=== PATIENT | male | born 1955 | race Caucasian/White ===

== ENCOUNTER 2018-05-13 12:55 | Emergency (ER) | payer BC ==
[2018-05-13] MEDS ORDERED: Ibuprofen TAB* 600 MG PO ONE (13:49)
[2018-05-13 14:49] VITALS: BP 125/77
--- NOTE | 2018-05-13 15:07 | ED ---
Lower Extremity - HPI Summary HPI Summary: Patient is a 63-year-old male presenting to the ED with a left ankle pain and deformity after tripping this morning proximally 2 hours [employer]. He states he tripped over the ankle and to the lateral side. He endorses immediate pain, swelling without ecchymosis. He has never injured this ankle before. He denies any pain to the lower extremity otherwise. Denies any numbness or tingling. He has been unable to ambulate - History of Current Complaint Chief Complaint: EDExtremityLower Stated Complaint: LEFT ANKLE PAIN PER PT Time Seen by Provider: 05/13/18 13:10 Hx Obtained From: Patient Mechanism Of Injury: Twisted Onset of Pain: Hours Severity Initially: Moderate Severity Currently: Moderate Pain Intensity: 3 Pain Scale Used: 0-10 Numeric Timing: Constant Location: Is Discrete @ - left ankle Character Of Pain: Aching Associated Signs And Symptoms: Positive: Swelling Aggravating Factor(s): Standing, Ambulation Alleviating Factor(s): Rest Able to Bear Weight: No - Risk Factors Gout Risk Factors: Negative DVT Risk Factors: Negative Septic Arthritis Risk Factor: Negative - Allergies/Home Medications Allergies/Adverse Reactions: Allergies Allergy/AdvReac Type Severity Reaction Status Date / Time naproxen [From Aleve] Allergy Hives Verified 05/13/18 13:01 PMH/Surg Hx/FS Hx/Imm Hx Previously Healthy: Yes - Immunization History Hx Pertussis Vaccination: No Immunizations Up to Date: Yes Infectious Disease History: No Infectious Disease History: Denies: Traveled Outside the [place] in Last 30 Days - Social History Occupation: Unemployed Lives: With Family Alcohol Use: None Hx Substance Use: No Substance Use Type: Reports: None Smoking Status (MU): Never Smoked Tobacco Review of Systems Constitutional: Negative Negative: Fever, Chills, Fatigue, Skin Diaphoresis Negative: Palpitations, Chest Pain Negative: Shortness Of Breath, Cough Genitourinary: Negative Positive: no symptoms reported, see HPI Positive: Arthralgia - left lateral ankle pain and swelling Skin: Negative All Other Systems Reviewed And Are Negative: Yes Physical Exam Triage Information Reviewed: Yes Vital Signs On Initial Exam: Initial Vitals Temp Pulse Resp BP Pulse Ox 97.4 F 69 16 112/58 94 05/13/18 12:59 05/13/18 12:59 05/13/18 12:59 05/13/18 12:59 05/13/18 12:59 Vital Signs Reviewed: Yes Appearance: Positive: Well-Appearing, Well-Nourished Skin: Positive: Warm, Skin Color Reflects Adequate Perfusion Head/Face: Positive: Normal Head/Face Inspection Eyes: Positive: EOMI, HA, Conjunctiva Clear Respiratory/Lung Sounds: Positive: Clear to Auscultation, Breath Sounds Present Cardiovascular: Positive: Normal, Pulses are Symmetrical in both Upper and Lower Extremities Musculoskeletal: Positive: Pain @ - left lateral ankle pain and swelling Neurological: Positive: Sensory/Motor Intact, Alert, Oriented to Person Place, Time, Speech Normal Psychiatric: Positive: Affect/Mood Appropriate AVPU Assessment: Alert Procedures - Splinting Left Lower Extremity Hand-Made Type: plaster Splint: posterior walking Pre-Proc Neuro Vasc Exam: normal Post-Proc Neuro Vasc Exam: normal Diagnostics - Vital Signs Vital Signs Temp Pulse Resp BP Pulse Ox 05/13/18 14:48 98.6 F 88 16 125/77 95 05/13/18 12:59 97.4 F 69 16 112/58 94 - Laboratory Lab Statement: Any lab studies that have been ordered have been reviewed, and results considered in the medical decision making process. Lower Extremity Course/Dx - Course Course Of Treatment: During the course treatment, the patient is evaluated for left ankle pain and swelling without ecchymosis. On physical examination, patient has difficulty with plantar flexion and dorsiflexion. He endorses 2/10 pain only with movement. Better with rest. Patient is unable to ambulate. Ankle x-ray shows: Keller type B fracture pattern lateral malleolus with associated small avulsion fracture at the medial malleolus. No pain to the lower extremity. Ipsilateral leg. No pain just below the knee or at the knee joint. No pain to the toes. There is no color temperature changes. Posterior tibial and pedal pulses intact. The ankle appears stable. This is a closed fracture. Plaster posterior walking U slab splint placed with good effect. NV intact. Crutches given. He will follow-up with orthopedics this week or next. - Diagnoses Provider Diagnoses: Lateral malleolar fracture Discharge - Sign-Out/Discharge Documenting (check all that apply): Patient Departure Patient Received Moderate/Deep Sedation with Procedure: No - Discharge Plan Condition: Stable Disposition: HOME Patient Education Materials: Ankle Fracture (ED) Referrals: No Primary Care Phys,NOPCP [Primary Care Provider] - Sophia Ortega MD [Medical Doctor] - Additional Instructions: Keep the area elevated as much as possible Do not bear weight Use crutches Follow-up with her orthopedic physician Ibuprofen 600 mg 3 times daily 4-5 days - Billing Disposition and Condition Condition: STABLE Disposition: Home
== END 2018-05-13 14:48 | disposition home or self-care (01) ==
LOC: ED 12:55
DX: S82.845A Nondisplaced bimalleolar fracture of left lower leg, initial encounter for closed fracture (principal); W01.0XXA Fall on same level from slipping, tripping and stumbling without subsequent striking against object, initial encounter; Y93.9 Activity, unspecified; Y92.9 Unspecified place or not applicable; Z88.6 Allergy status to analgesic agent
CPT/HCPCS: 99282; A9270-GY

== ENCOUNTER 2019-04-28 15:29 | Emergency (ER) | payer BC ==
--- OUTSIDE RECORDS SUMMARY | 2019-04-28 15:43 | XMS REPORT | Summary of Care ---
:1955 Author Organization [facility] Address [address] [place] [address] Care Team Providers Name Role Phone Matty León Primary Care Provider Reason for Referral Diagnostic Testing (Routine) Status Reason Specialty Diagnoses / Referred By Referred To Procedures Contact Contact Pending Review Diagnoses Dyspnea on exertion Matty León PA Procedures EXERCISE STRESS ECHO W/TREADMILL [address] [place] [address] Reason for Visit Reason Comments Establish Care Did see Dr. Ott. Hypertension Follow up. Encounter Details Date Type Department Care Team Description 03/12/2019 Office Visit [facility] Matty León PA Encounter to establish care (Primary Dx); [address] [facility] Essential hypertension; [place] [address] 38 Prediabetes; [phone] [place] [address] Dyspnea on exertion; [phone] Chronic obstructive pulmonary disease, unspecified COPD type (HCC); [phone] Flu vaccine need; (Fax) Dyslipidemia; Depression with anxiety; REAL (obstructive sleep apnea) Allergies Active Allergy Reactions Severity Noted Date Comments Advair Diskus Rash 03/15/2015 Naproxen Sodium Other, Hives 07/06/2007 palpitations documented as of this encounter (statuses as of 03/12/2019) Medications Medication Sig Dispensed Refills Start Date End Date Status tiotropium (SPIRIVA) 18 Take 1 INHL by 30 Cap 3 11/07/2016 Active MCG Inhalation inhalation CapIndications: Chronic DAILY. obstructive pulmonary disease with acute exacerbation (HCC) albuterol HFA (PROVENTIL Take 2 Puffs by 3 Each 1 09/09/2017 Active HFA) 108 (90 Base) inhalation EVERY MCG/ACT Inhalation Aero FOUR HOURS Soln NEEDED (wheezing). loratadine Take 1 Tab by 90 Tab 0 12/08/2017 Active (CLARITIN,ALAVERT) 10 MG mouth DAILY. Oral TabIndications: Nasal congestion venlafaxine (EFFEXOR XR) Take 1 Cap by 90 Cap 0 03/08/2019 Active 150 MG Oral CAPSULE SR 24 mouth EVERY HRIndications: Depression TWENTY-FOUR with anxiety HOURS. montelukast (SINGULAIR) Take 1 Tab by 90 Tab 0 03/08/2019 Active 10 MG Oral Tab mouth DAILY. atorvastatin (LIPITOR) 20 Take 1 Tab by 90 Tab 0 03/08/2019 Active MG Oral TabIndications: mouth DAILY. Dyslipidemia hydrochlorothiazide Take 1 Tab by 90 Tab 0 03/08/2019 Active (HCTZ, ORETIC) 12.5 MG mouth DAILY. Oral TabIndications: Essential hypertension ramipril (ALTACE) 2.5 MG Take 1 Cap by 90 Cap 1 03/12/2019 Active Oral CapIndications: mouth DAILY. Essential hypertension documented as of this encounter (statuses as of 03/12/2019) Active Problems Problem Noted Date REAL (obstructive sleep apnea) 09/18/2018 BMI 40.0-44.9, adult 04/09/2017 Sessile colonic polyp 08/16/2015 Essential hypertension 08/16/2015 Prediabetes 12/13/2014 Elevated LFTs 08/10/2014 BMI 36.0-36.9,adult 05/24/2011 Depression with anxiety 12/12/2010 COPD (chronic obstructive pulmonary disease) Dyslipidemia Lumbar disc disease Cervical spine disease Erectile dysfunction documented as of this encounter (statuses as of 03/12/2019) Resolved Problems Problem Noted Date Resolved Date HTN (hypertension) 07/08/2011 08/16/2015 Nicotine dependence 12/12/2010 07/12/2011 Cough 11/27/2003 03/12/2019 documented as of this encounter (statuses as of 03/12/2019) Immunizations Name Administration Dates Next Due Influenza (IM) Preservative Free 03/12/2019, 03/13/2018, 04/09/2017, 05/07/2016, 12/16/2012, 12/21/2007 Influenza (IM) W/Pres 03/15/2015 PNEUMOCOCCAL POLYSACCHARIDE VACCINE 12/21/2007, 02/25/2006 Pneumococcal Conjugate(13 Valent) 04/19/2015 TDAP Vaccine 10/15/2012 documented as of this encounter Social History Tobacco Use Types Packs/Day Years Used Date Former Smoker Cigarettes 2 30 Quit: 11/24/2010 Smokeless Tobacco: Never Used Comments: 2009 Alcohol Use Drinks/Week oz/Week Comments Yes occasionally Alcohol Habits Answer Date Recorded How often do you have a drink containing alcohol? Monthly or less 03/13/2018 How many drinks containing alcohol do you have on a Not asked typical day when you are drinking? How often do you have six or more drinks on one Not asked occasion? Sex Assigned at Date Recorded Not on file Job Start Date Occupation Industry Not on file Not on file Not on file Travel History Travel Start Travel End No recent travel history available. documented as of this encounter Last Filed Vital Signs Vital Sign Reading Time Taken Comments Blood Pressure 142/84 03/12/2019 9:00 AM EST Pulse 88 03/12/2019 8:52 AM EST Temperature 36.4 03/12/2019 8:52 AM EST C (97.6 F) Respiratory Rate - - Oxygen Saturation 96% 03/12/2019 8:52 AM EST Inhaled Oxygen Concentration - - Weight 116.6 kg (257 lb) 03/12/2019 8:52 AM EST Height 167.6 cm (5' 6") 03/12/2019 8:52 AM EST Body Mass Index 41.48 03/12/2019 8:52 AM EST documented in this encounter Patient Instructions Patient InstructionsYoMatty covington PA - 03/12/2019 8:40 AM ESTEncounter to establish. BP. Borderline control. Start ramipril 2.5mg daily. Continue HCTZ> Discussed medication and side effects. Check fasting lab. Continue lipitor. Stress echo due to worsening dyspnea on exertion last 1 year. Flu shot today. Follow-up 1 month. documented in this encounter Progress Notes Matty León PA - 03/12/2019 8:40 AM EST PATIENT: Bao Lamb : 1955 DATE OF SERVICE: 03/12/2019 CHIEF COMPLAINT: Chief Complaint Patient presents with [facility] Care Did see Dr. Ott. Hypertension Follow up. Subjective HISTORY OF PRESENT ILLNESS: Bao Lamb is a 64-y.o. male who presents the clinic to establish care. Former PCP Dr. Ezequiel Bailon. States history of hypertension. On HCTZ 12.5 mg daily. Denies lower extremity edema. Denies headache, chest pain, dizziness, vision changes, or epistaxis. Retired 1 year ago. Has noticed since retiring that he gets more short of breath with normal activities around the home. States he cannot climb 1 flight of stairs without feeling very winded. He does not experience chest pain with any of these activities. History of REAL. Compliant with CPAP. History of COPD. Managed with Spiriva. Only needs albuterol inhaler 2-3 times per week. Also takes Singulair with good benefit. Quit smoking 8 years ago. Depression. Reports good response to venlafaxine. Denies side effects. Denies SI/HI. Dyslipidemia. On Lipitor 20 mg daily. Denies muscle aches. Last LDL 73. Prediabetes. Last A1c 6.1. HPI Past Medical History: Diagnosis Date Anxiety and depression BMI 40.0-44.9, adult ([facility]) 04/09/2017 Cervical spine disease Colon polyps COPD (chronic obstructive pulmonary disease) ([facility]) Diverticulosis of intestine Dyslipidemia Erectile dysfunction HTN (hypertension) stopped taking meds over a year ago Lumbar disc disease Pulmonary disease COPD Severe obstructive sleep apnea Tobacco abuse No family history on file. Current Outpatient Medications Medication Sig albuterol HFA (PROVENTIL HFA) 108 (90 Base) MCG/ACT Inhalation Aero Soln Take 2 Puffs by inhalation EVERY FOUR HOURS NEEDED (wheezing). atorvastatin (LIPITOR) 20 MG Oral Tab Take 1 Tab by mouth DAILY. hydrochlorothiazide (HCTZ, ORETIC) 12.5 MG Oral Tab Take 1 Tab by mouth DAILY. loratadine (CLARITIN,ALAVERT) 10 MG Oral Tab Take 1 Tab by mouth DAILY. montelukast (SINGULAIR) 10 MG Oral Tab Take 1 Tab by mouth DAILY. ramipril (ALTACE) 2.5 MG Oral Cap Take 1 Cap by mouth DAILY. tiotropium (SPIRIVA) 18 MCG Inhalation Cap Take 1 INHL by inhalation DAILY. venlafaxine (EFFEXOR XR) 150 MG Oral CAPSULE SR 24 HR Take 1 Cap by mouth EVERY TWENTY-FOUR HOURS. No current facility-administered medications for this visit. Allergies Allergen Reactions Advair Diskus Rash Aleve [Naproxen Sodium] Other and Hives palpitations Social History Socioeconomic History Marital status: Spouse name: Not on file Number of children: Not on file Years of education: Not on file Highest education level: Not on file Occupational History Not on file Social Needs Financial resource strain: Not on file Food insecurity Worry: Not on file Inability: Not on file Transportation needs Medical: Not on file Non-medical: Not on file Tobacco Use Smoking status: Former Smoker Packs/day: 2.00 Years: 30.00 Pack years: 60.00 Types: Cigarettes Last attempt to quit: 11/24/2010 Years since quittin.3 Smokeless tobacco: Never Used Tobacco comment: 2009 Substance and Sexual Activity Alcohol use: Yes Frequency: Monthly or less Comment: occasionally Drug use: No Sexual activity: Yes Partners: Female Lifestyle Physical activity Days per week: Not on file Minutes per session: Not on file Stress: Not on file Relationships Social connections Talks on phone: Not on file Gets together: Not on file Attends islam service: Not on file Active member of club or organization: Not on file Attends meetings of clubs or organizations: Not on file Relationship status: Not on file Intimate partner violence Fear of current or ex partner: Not on file Emotionally abused: Not on file Physically abused: Not on file Forced sexual activity: Not on file Other Topics Concern Back Care Not Asked Bike Helmet Not Asked Blood Transfusions Not Asked Caffeine Concern Not Asked Exercise Not Asked Hobby Hazards Not Asked International Travel Not Asked Service Not Asked Occupational Exposure Not Asked Seat Belt Not Asked Self-Exams Not Asked Sleep Concern Not Asked Special Diet Not Asked Stress Concern Not Asked Weight Concern Not Asked Social History Narrative - 2 children Works at [employer]. REVIEW OF SYSTEMS: Review of Systems Constitutional: Negative. Respiratory: Positive for shortness of breath. Negative for cough and wheezing. Cardiovascular: Negative. Gastrointestinal: Negative. Genitourinary: Negative. Musculoskeletal: Negative. Skin: Negative. Neurological: Negative. Psychiatric/Behavioral: Negative. Objective PHYSICAL EXAM: VITALS: BP (!) 142/84 | Pulse 88 | Temp 97.6 F (36.4 C) | Ht 5' 6" ( 1.676 m) | Wt 257 lb (116.6 kg) | SpO2 96% | BMI 41.48 kg/m Body mass index is 41.48 kg/m. Physical Exam Vitals signs reviewed. Constitutional: Comments: Morbidly obese, no acute distress, pleasant HENT: Head: Normocephalic and atraumatic. Right Ear: Tympanic membrane normal. Left Ear: Tympanic membrane normal. Mouth/Throat: Mouth: Mucous membranes are moist. Pharynx: Oropharynx is clear. Comments: Mallampati 3 Neck: Musculoskeletal: Normal range of motion and neck supple. Vascular: No carotid bruit. Cardiovascular: Rate and Rhythm: Normal rate and regular rhythm. Comments: Occasional ectopy Pulmonary: Effort: Pulmonary effort is normal. Breath sounds: Normal breath sounds. No wheezing. Abdominal: General: Bowel sounds are normal. Palpations: Abdomen is soft. Comments: protuberant Musculoskeletal: Right lower leg: No edema. Left lower leg: No edema. Skin: General: Skin is warm and dry. Neurological: Deep Tendon Reflexes: Reflexes normal. Psychiatric: Mood and Affect: Mood normal. Behavior: Behavior normal. ASSESSMENT / IMPRESSION: ICD-9-CM ICD-10-CM 1. Encounter to establish care V65.8 Z76.89 2. Essential hypertension 401.9 I10 COMPREHENSIVE METABOLIC PANEL CBC WITH DIFFERENTIAL THYROID STIMULATING HORMONE ramipril (ALTACE) 2.5 MG Oral Cap THYROID STIMULATING HORMONE CBC WITH DIFFERENTIAL COMPREHENSIVE METABOLIC PANEL 3. Prediabetes 790.29 R73.03 GLYCOHEMOGLOBIN A1C GLYCOHEMOGLOBIN A1C 4. Dyspnea on exertion 786.09 R06.09 EXERCISE STRESS ECHO W/TREADMILL 5. Chronic obstructive pulmonary disease, unspecified COPD type ([facility]) 496 J44.9 6. Flu vaccine need V04.81 Z23 [place] FLU VACCINE PRES FREE 6MOS+ 7. Dyslipidemia 272.4 E78.5 LIPID PROFILE LIPID PROFILE 8. Depression with anxiety 300.4 F41.8 9. REAL (obstructive sleep apnea) 327.23 G47.33 More than 50% of the physician/patient and or family encounter was spent with counseling and coordination of care. Total visit time involved was 40 minutes. Plan Encounter to establish. BP. Borderline control. Start ramipril 2.5mg daily. Continue HCTZ 12.5mg. Discussed medication and side effects. Check fasting lab. Continue lipitor. Stress echo ordered due to worsening dyspnea on exertion last 1 year. Flu shot today. Follow-up 1 month. Author: ANITA Phillips 03/12/2019 13:39 documented in this encounter Plan of Treatment Date Type Specialty Care Team Description 04/12/2019 Office Visit Family Practice Matty León PA [address] [place] [address] [phone] Name Type Priority Associated Diagnoses Date/Time GLYCOHEMOGLOBIN A1C Lab Routine Prediabetes 03/12/2019 10:08 AM EST LIPID PROFILE Lab Routine Dyslipidemia 03/12/2019 10:08 AM EST COMPREHENSIVE METABOLIC Lab Routine Essential hypertension 03/12/2019 10: 08 AM PANEL EST CBC WITH DIFFERENTIAL Lab Routine Essential hypertension 03/12/2019 10:08 AM EST THYROID STIMULATING HORMONE Lab Routine Essential hypertension 03/12/2019 10:08 AM EST Name Type Priority Associated Diagnoses Order Schedule GLYCOHEMOGLOBIN A1C Lab Routine Prediabetes Expected: 03/12/2019 (Approximate), Expires: 03/12/2020 LIPID PROFILE Lab Routine Dyslipidemia Expected: 03/12/2019 (Approximate), Expires: 03/12/2020 COMPREHENSIVE METABOLIC Lab Routine Essential hypertension Expected: PANEL 03/12/2019 (Approximate), Expires: 03/11/2020 CBC WITH DIFFERENTIAL Lab Routine Essential hypertension Expected: 03/12/2019 (Approximate), Expires: 03/12/2020 THYROID STIMULATING HORMONE Lab Routine Essential hypertension Expected: 03/12/2019 (Approximate), Expires: 03/12/2020 EXERCISE STRESS ECHO CV Lab Routine Dyspnea on exertion Expected: W/TREADMILL 03/12/2019, Expires: 04/15/2020 Health Maintenance Due Date Last Done Comments INFLUENZA VACCINE (#1) 2018 03/13/2018, 04/09/2017, 05/07/2016, Additional history exists DIABETES SCREENING 03/13/2019 03/13/2018, 03/13/2018, 04/17/2017, Additional history exists LUNG CANCER SCREENING 04/03/2019 04/03/2018, 04/17/2017 DEPRESSION SCREENING 09/16/2019 09/15/2018, 09/15/2018 LIPID DISORDER SCREENING 03/08/2020 03/08/2019, 04/17/2017, 07/10/2015, Additional history exists ZOSTER IMMUNIZATION SERIES 03/12/2020 Postponed from (1 of 2) 2007 (Patient refused) DTaP/Tdap/Td Vaccines (2 - 10/15/2022 10/15/2012 Tdap) Colonoscopy 10/27/2022 10/27/2017, 10/07/2012, 10/07/2012, Additional history exists PNEUMOCOCCAL 0-64 YRS Completed 04/19/2015, 12/21/2007, 02/25/2006 HEPATITIS A IMMUNIZATION Aged Out No longer eligible SERIES based on patient's age to complete this topic HPV IMMUNIZATION SERIES Aged Out No longer eligible based on patient's age to complete this topic MENINGOCOCCAL VACCINE IMM Aged Out No longer eligible based on patient's age to complete this topic documented as of this encounter Goals Goal Patient Goal Associated Recent Patient-Stated? Author Type Problems Progress Blood Pressure Blood Pressure Essential 142/84 No Keenan, < 140/90 hypertension (03/12/2019 Karen, 9:00 AM EST) WILLIAN Note: Hypertension Care Plan Based on the patient's clinical history and according to JNC 8 guidelines target blood pressure goal is less than 140/90. Based on the patient's last blood pressure of BP: 126/78 the patient is at at go al and discussed blood pressure goal with patient. As your provider, it is important that I advise you regarding: your current medications and help you with any challenges you may face taking your medications as directed (ex. instructions, cost, side effects, and interactions). Important lifestyle changes: exercise, weight reduction, diet, dietary sodium reduction, medication compliance and moderation of alcohol consumption your clinical goals and how you can achieve success: weight reduction, exercise plan and diet improvements medication management: no change. patient education/self-management tools provided: Yes To successfully manage my Hypertension I will: monitor my blood pressure daily, understanding that my goal is less than 140/ 90 per my healthcare provider's recommendation. I will schedule an appointment with my provider if consistent abnormal readings greater than 160/100. take medications every day as prescribed by my healthcare provider and if unable to take them I will discuss with my provider. monitor for symptoms of chest pain, chest tightness/pressure, irregular heartbeat, persistent dizziness, radiating arm pain, and neck or jaw pain. If any of these symptoms are noticed I will seek medical attention immediately by calling 911 exercise/walk 30 minutes 7 day(s) per week. If I experience chest pain, chest tightness, or shortness of breath, I will seek medical attention immediately. follow a diet rich in fruits, vegetables, and low-fat dairy products with reduced content of saturated & total fat. I will reduce my sodium intake daily. An example is the DASH diet. To obtain more information please refer to the DASH Eating Plan listed in Educational Resources. record my blood pressure results. Manfred is safe and secure way for you to do this in your medical record online. try to obtain an ideal body weight. My recent weight was Weight: 255 lb 6.4 oz (115.8 kg). My weight loss goal for my next office visit is 5lbs . limit alcohol consumption. For men two drinks per day and women one drink per day. if currently smoking, will discuss how to quit smoking with my healthcare provider and work towards quitting. Educational Resources: National Heart, Lung, & Blood [place] http://nhlbi.nih.gov/hbp/index.html The DASH Diet Eating Plan http://www.nhlbi.nih.gov/health/health-topics/ topics/dash/ Academy of Nutrition & DIetetics http://eatright.org National Smoking Cessation Site http://smokefree.gov Blood Pressure < Blood Pressure 142/84 (03/12/2019 9:00 Karen Gutierrez CRNP 140/90 AM EST) Note: This is an individualized treatment (blood pressure) goal for Bao Lamb : Displayed above (on the left) is your goal for blood pressure control. Your most recent blood pressure is also shown above, on the right. You should try to achieve blood pressures that are lower than your goal listed above (on the left). Depression screen (PHQ-9) Depression 0 (09/15/2018 2:14 PM EDT) Fredo Benz MD total score < 5 Note: This is an individualized treatment (depression) goal for Bao Lamb: Displayed above is your goal for a depression screening (PHQ-9) score that would indicate good control of your depression. Hyperlipidemia Lifestyle Dyslipidemia Karen Gutierrez CRNP Note: 1. LDL<100 2. Triglycerides (Trig) <150 3. Weight Reduction-BMI <25 4. Heart Health Diet -Eat 5 servings of fruits and vegetables every day. -Dietary fiber is important. 25 grams a day for a woman and 38 grams of fiber a day for men -Trans fats and saturated fats chould be avoided in favor of monounsaturated and polyunsaturated fats. -Do not replace fat with refined carbohydrate. This would decrease HDL -Eat vegetables as snacks. -Put fruit on your cereal -Replace refined grains ( like white bread, white rice) with whole grains ( like whole wheat bread and brown rice) -Cook with oils that contain polyunsaturated and monounsaturated fats, like olive, canola, and peanut oil -Choose margarine that do not have partially hydrogenated oils -Soft margarines ( especially squeeze margarines) have less trans fatty acids. -Eat fewer baked goods that are store made and contain partially hydrogenated fats (many types of crackers, cookies, and cupcakes) -Choose non sweetened and non alcoholic beverages, like water, at meals and parties. Weight loss vs. 18 mo Lifestyle 0.7 (03/12/2019 8:52 AM No Karen Hussein CRNP max (lbs) >= 10 EST) Note: This is an individualized lifestyle goal for Bao Lamb: Your body mass index (BMI) is more than 30. You should lose weight. A reasonable starting goal is to lose 10 pounds. Displayed above is how many pounds you have lost thus far towards your 10 pound weight loss goal. Keep immunizations current Lifestyle No Karen Hussein CRNP Note: This is an individualized lifestyle goal for Bao Lamb: Please be sure to keep up-to-date on recommended immunizations. For example, this would include a yearly influenza vaccine. Immunization status can be seen by looking at the Health Maintenance sections of your [facility], Plan of Care, and any After Visit Summaries. Keep a regular sleep schedule Lifestyle No Fredo Estrada MD Note: This is an individualized lifestyle goal for Bao Lamb: Please maintain a regular sleep schedule. This may help with some symptoms of depression. Take all prescribed medications as Self-management No Karen Hussein CRNP directed Note: This is an individualized self-management goal for Bao Lamb: Please take all prescribed medications as directed. 1. Do not skip doses. If you cannot afford your medications, talk with your doctor. 2. Use a pill reminder system such as a pill box if needed. Your pharmacist can help you with this. 3. Contact your Pharmacy 5 days before your medication runs out. If you cannot take your medications for any reasons, talk with your doctor. 4. Please bring all of your medication bottles and inhalers (or a list of all your medications/inhalers) with you to every visit. Potential barriers to meeting all of your care plan goals will continue to be addressed on an ongoing basis. documented as of this encounter Results Not on filedocumented in this encounter Visit Diagnoses Diagnosis Encounter to establish care Other reasons for seeking consultation Essential hypertension Unspecified essential hypertension Prediabetes Other abnormal glucose Dyspnea on exertion Other dyspnea and respiratory abnormality Chronic obstructive pulmonary disease, unspecified COPD type (HCC) Flu vaccine need Need for prophylactic vaccination and inoculation against influenza Dyslipidemia Other and unspecified hyperlipidemia Depression with anxiety Dysthymic disorder REAL (obstructive sleep apnea) Obstructive sleep apnea (adult) (pediatric) documented in this encounter Insurance Payer Benefit Plan / Subscriber ID Effective Dates Phone Address Type Group ARJUN OVALLES xxxxxxxxxxxx 2014-Present [employer] Name Account Type Relation to Date of Phone Billing Patient Address Bao Lamb Personal/Family 1955 [address] (Home) [facility] [phone] [place], [place] (Work) [id number] documented as of this encounter
--- OUTSIDE RECORDS SUMMARY | 2019-04-28 15:43 | XMS REPORT | Summary of Care ---
:1955 Author Organization [facility] Address [address] [address] Care Team Providers Name Role Phone Matty León Primary Care Provider Reason for Referral MRI/CAT/PET Scan (Routine) Status Reason Specialty Diagnoses / Referred By Referred To Procedures Contact Contact Pending Review Diagnoses Encounter for screening for malignant neoplasm of lung in current smoker with 30 pack year history or greater Matty León PA Procedures CT CHEST LUNG SCREENING [address] [place] [address] Reason for Visit Reason Comments Follow Up Hypertnesion Encounter Details Date Type Department Care Team Description 04/13/2019 Office Visit [facility] Matty León PA Essential hypertension (Primary Dx); [address] [facility] Dyslipidemia; [place] [address] 38 Chronic obstructive pulmonary disease, unspecified COPD type (HCC); [phone] [place] [address] Encounter for screening for malignant neoplasm of lung in current smoker with 30 pack year history or greater [phone] Allergies Active Allergy Reactions Severity Noted Date Comments Advair Diskus Rash 03/15/2015 Naproxen Sodium Other, Hives 07/06/2007 palpitations documented as of this encounter (statuses as of 04/13/2019) Medications Medication Sig Dispensed Refills Start End Status Date Date tiotropium (SPIRIVA) 18 Take 1 INHL by 30 Cap 3 11/08/19 Active MCG Inhalation inhalation 17 CapIndications: Chronic DAILY. obstructive pulmonary disease with acute exacerbation (HCC) loratadine Take 1 Tab by 90 Tab 0 12/09/19 Active (CLARITIN,ALAVERT) 10 mouth DAILY. 18 MG Oral TabIndications: Nasal congestion venlafaxine (EFFEXOR Take 1 Cap by 90 Cap 0 03/08/20 Active XR) 150 MG Oral CAPSULE mouth EVERY 19 SR 24 HRIndications: TWENTY-FOUR Depression with anxiety HOURS. montelukast (SINGULAIR) Take 1 Tab by 90 Tab 0 03/08/20 Active 10 MG Oral Tab mouth DAILY. 19 atorvastatin (LIPITOR) Take 1 Tab by 90 Tab 0 03/08/20 Active 20 MG Oral mouth DAILY. 19 TabIndications: Dyslipidemia hydrochlorothiazide Take 1 Tab by 90 Tab 0 03/08/20 Active (HCTZ, ORETIC) 12.5 MG mouth DAILY. 19 Oral TabIndications: Essential hypertension ramipril (ALTACE) 5 MG Take 1 Cap by 90 Cap 1 04/13/19 Active Oral CapIndications: mouth DAILY. 20 Essential hypertension albuterol HFA Take 2 Puffs 3 Each 1 04/13/19 Active (PROVENTIL HFA) 108 (90 by inhalation 20 Base) MCG/ACT EVERY FOUR Inhalation Aero Soln HOURS NEEDED (wheezing). albuterol HFA Take 2 Puffs 3 Each 1 09/10/19 Discontinued (PROVENTIL HFA) 108 (90 by inhalation 18 020 (Reorder) Base) MCG/ACT EVERY FOUR Inhalation Aero Soln HOURS NEEDED (wheezing). ramipril (ALTACE) 2.5 Take 1 Cap by 90 Cap 1 03/12/19 Discontinued MG Oral CapIndications: mouth DAILY. 20 020 (Reorder) Essential hypertension documented as of this encounter (statuses as of 04/13/2019) Active Problems Problem Noted Date REAL (obstructive sleep apnea) 09/18/2018 BMI 40.0-44.9, adult 04/09/2017 Sessile colonic polyp 08/16/2015 Essential hypertension 08/16/2015 Prediabetes 12/13/2014 Elevated LFTs 08/10/2014 BMI 36.0-36.9,adult 05/24/2011 Depression with anxiety 12/12/2010 COPD (chronic obstructive pulmonary disease) Dyslipidemia Lumbar disc disease Cervical spine disease Erectile dysfunction documented as of this encounter (statuses as of 04/13/2019) Resolved Problems Problem Noted Date Resolved Date HTN (hypertension) 07/08/2011 08/16/2015 Nicotine dependence 12/12/2010 07/12/2011 Cough 11/27/2003 03/12/2019 documented as of this encounter (statuses as of 04/13/2019) Immunizations Name Administration Dates Next Due Influenza (IM) Preservative Free 03/12/2019, 03/13/2018, 04/09/2017, 05/07/2016, 12/16/2012, 12/21/2007 Influenza (IM) W/Pres 03/15/2015 PNEUMOCOCCAL POLYSACCHARIDE VACCINE 12/21/2007, 02/25/2006 Pneumococcal Conjugate(13 Valent) 04/19/2015 TDAP Vaccine 10/15/2012 documented as of this encounter Social History Tobacco Use Types Packs/Day Years Used Date Former Smoker Cigarettes 2 30 Quit: 11/24/2010 Smokeless Tobacco: Never Used Tobacco Cessation: Counseling Given: No Comments: 2009 Alcohol Use Drinks/Week oz/Week Comments [...] Sign Reading Time Taken Comments Blood Pressure 132/84 04/13/2019 8:07 AM EST Pulse 86 04/13/2019 8:07 AM EST Temperature 36.8 04/13/2019 8:07 AM C (98.3 EST F) Respiratory Rate 18 04/13/2019 8:07 AM EST Oxygen Saturation 94% 04/13/2019 8:07 AM EST Inhaled Oxygen Concentration - - Weight 116.4 kg (256 lb 11.2 oz) 04/13/2019 8:07 AM EST Height 167.6 cm (5' 6") 04/13/2019 8:07 AM EST Body Mass Index 41.43 04/13/2019 8:07 AM EST documented in this encounter Patient Instructions Patient InstructionsMatty León PA - 04/13/2019 8:00 AM ESTGood response to ramipril. Goal < 130/80. Increase to ramipril 5mg daily. Encouraged regular aerobic exercise 30 minutes daily. May increase to 60 minutes daily. Encouraged weight loss. Echo reviewed. Consider alternative testing with chest pain or worsening dyspnea on exertion. Dyslipidemia. At goal. Triglycerides elevated. Will address with diet for now. COPD. Stable with spiriva and albuterol. Albuterol HFA refilled. Schedule CT lung cancer screening. Follow-up 6 months HTN. documented in this encounter Progress Notes Matty León PA - 04/13/2019 8:00 AM EST PATIENT: Bao Lamb : 1955 DATE OF SERVICE: 04/13/2019 CHIEF COMPLAINT: Chief Complaint Patient presents with Follow Up Hypertnesion Subjective HISTORY OF PRESENT ILLNESS: Bao Lamb is a 64-y.o. male who presents for follow-up HTN and review stress echo. Started on ramipril 2.5 mg daily. Tolerating without side effects. Denies cough. Denies chest pain or shortness of breath. This test is negative for ischemia by symptoms, negative for ischemia by EKG, negative for ischemia by echocardiographic imaging. Resting hypertension with hypertensive response to exercise. Recommendation Blood pressure control. If continues to have symptoms or concerns for coronary etiology, consider alternative testing/evaluation. 7 METS achieved. HPI Past Medical History: Diagnosis Date Anxiety and depression BMI 40.0-44.9, adult (HCC) 04/09/2017 Cervical spine disease Colon polyps COPD (chronic obstructive pulmonary disease) (HCC) Diverticulosis of intestine Dyslipidemia Erectile dysfunction HTN [...] 1 Tab by mouth DAILY. ramipril (ALTACE) 5 MG Oral Cap Take 1 Cap by [...] file Gets together: Not on file Attends spiritism service: Not on file Active member of [...] History Narrative - 2 children Works at [employer] REVIEW OF SYSTEMS: Review of Systems Constitutional: Negative. Respiratory: Negative. Cardiovascular: Negative. Skin: Negative. Neurological: Negative. Objective PHYSICAL EXAM: VITALS: BP 132/84 | Pulse 86 | Temp 98.3 F (36.8 C) | Resp 18 | Ht 5' 6" (1.676 m) | Wt 256 lb 11.2 oz (116.4 kg) | SpO2 94% | BMI 41.43 kg/m Body mass index is 41.43 kg/m. Physical Exam Vitals signs reviewed. Constitutional: General: He is not in acute distress. Comments: Morbidly obese HENT: Head: Normocephalic and atraumatic. Mouth/Throat: Mouth: Mucous membranes are moist. Pharynx: Oropharynx is clear. Neck: Vascular: No carotid bruit. Cardiovascular: Rate and Rhythm: Normal rate and regular rhythm. Pulmonary: Effort: Pulmonary effort is normal. Breath sounds: Normal breath sounds. Musculoskeletal: Right lower leg: No edema. Left lower leg: No edema. ASSESSMENT / IMPRESSION: ICD-9-CM ICD-10-CM 1. Essential hypertension 401.9 I10 ramipril (ALTACE) 5 MG Oral Cap 2. Dyslipidemia 272.4 E78.5 3. Chronic obstructive pulmonary disease, unspecified COPD type (HCC) 496 J44.9 4. Encounter for screening for malignant neoplasm of lung in current smoker with 30 pack year history or greater V76.[address] CHEST LUNG SCREENING 305.1 F17.200 Plan Good response to ramipril. Goal < 130/80. Increase to ramipril 5mg daily. Encouraged regular aerobic exercise 30 minutes daily. May increase to 60 minutes daily. Encouraged weight loss. Echo reviewed. Consider alternative testing with chest pain or worsening dyspnea on exertion. Dyslipidemia. At goal. Triglycerides elevated. Will address with diet for now. COPD. Stable with spiriva and albuterol. Albuterol HFA refilled. Regarding screening for lung cancer screening: Bao Lamb is a 64-y.o. old male considering lung cancer screening. The patient is a former smoker. He has had a prior CT scan on 04/03/2018. He reports that he quit smoking about 8 years ago. His smoking use included cigarettes. He has a 60.00 pack-year smoking history. He has never used smokeless tobacco. He denies symptoms of lung cancer. Shared decision making was performed. https://effectivehealthcare.ahrq.gov/decision-aids/frof-vtbzzg-juppnyman/ decisionmaking-tool.html Together we reviewed the benefits of lung cancer screening using an [facility] authored decision supporttool. I discussed the risks of CT screening including false positive results and radiation exposure Assessment/Plan: Bao Lamb has expressed interest the Lung Screening Program. Low-dose non-contrast CT screening of persons deemed at high risk for lung cancer has been shown to reduce lung cancer mortality by20% compared with chest x-ray screening. Based on his history of smoking > 30 pack years and stopping within the last 15 years, he meets eligibility criteria. The patient verbally confirmed understanding of this information and accepted to proceed. I have placed orders for low dose CT imaging The patient was counseled on smoking cessation. [id number] Follow-up 6 months Author: ANITA Phillips 04/13/2019 08:27 documented in this encounter Plan of Treatment Name Type Priority Associated Diagnoses Order Schedule CT CHEST LUNG SCREENING Imaging Routine Encounter for screening Expected: 04/13/2019, for malignant neoplasm Expires: 04/12/2020 of lung in current smoker with 30 pack year history or greater Health Maintenance Due Date Last Done Comments LUNG CANCER SCREENING 04/03/2019 04/03/2018, 04/17/2017 DEPRESSION SCREENING 09/16/2019 09/15/2018, 09/15/2018 DIABETES SCREENING 03/12/2020 03/12/2019, 03/12/2019, 03/13/2018, Additional history exists LIPID DISORDER SCREENING 03/12/2020 03/12/2019, 03/08/2019, 04/17/2017, Additional history exists ZOSTER IMMUNIZATION SERIES 03/12/2020 Postponed from (1 of 2) 2007 (Patient refused) DTaP/Tdap/Td Vaccines (2 - 10/15/2022 10/15/2012 Tdap) Colonoscopy 10/27/2022 10/27/2017, 10/07/2012, 10/07/2012, Additional history exists PNEUMOCOCCAL 0-64 YRS Completed 04/19/2015, 12/21/2007, 02/25/2006 INFLUENZA VACCINE Completed 03/12/2019, 03/13/2018, 04/09/2017, Additional history exists HEPATITIS A IMMUNIZATION Aged Out No longer [...] Problems Progress Blood Pressure Blood Pressure Essential 132/84 No [place], < 140/90 hypertension (04/13/2019 Karen, 8:07 AM EST) WILLIAN Note: Hypertension Care Plan [...] Educational Resources. record my blood pressure results. [employer] is safe and secure way for you [...] Educational Resources: National Heart, Lung, & Blood [place] http://nhlbi.nih.gov/hbp/index.html The DASH Diet Eating Plan http://www.nhlbi.nih.gov/health/health-topics/ topics/dash/ Academy of Nutrition & DIetetics http://eatright.org National Smoking Cessation Site http://smokefree.gov Blood Pressure < Blood Pressure 132/84 (04/13/2019 8:07 Karen Gutierrez CRNP 140/90 AM EST) Note: [...] parties. Weight loss vs. 18 mo Lifestyle 1 (04/13/2019 8:07 AM EST) No Karen Hussein CRNP max (lbs) >= 10 Note: This is an individualized lifestyle goal for Bao Kumarpeter: Your body mass index (BMI) is more [...] filedocumented in this encounter Visit Diagnoses Diagnosis Essential hypertension Unspecified essential hypertension Dyslipidemia Other and unspecified hyperlipidemia Chronic obstructive pulmonary disease, unspecified COPD type (HCC) Encounter for screening for malignant neoplasm of lung in current smoker with 30 pack year history or greater documented in this encounter Insurance Payer Benefit Plan / Subscriber ID Effective Dates Phone Address Type Group ARJUN [employer]LEYBS xxxxxxxxxxxx 2014-Present [employer] Name Account Type Relation to Date of Phone Billing Patient Address Bao Lamb Personal/Family 1955 [address] (Home) [facility] [phone] [place], [place] (Work) [id number] documented as of this encounter
[2019-04-28] MEDS ORDERED: Tetan/Diph/Pertus SYR(Tdap)* 0.5 ML SYR(BOOSTRIX) use SYR contains LATEX IM ONE (16:10)
[2019-04-28] MEDS ORDERED: Lidocaine 1% MPF ** 5 ML VIAL INJ ONE (16:10)
--- NOTE | 2019-04-28 16:11 | ED ---
Upper Extremity Pain - HPI Summary HPI Summary: Patient is a 64-year-old male who presents emergency department for injury to the third and fourth digits of left hand that occurred just prior to arrival. Patient was using a table saw when he asked only cut distal digits. Unaware of last tetanus immunization. Is not anticoagulated. Symptoms are mild in severity. Touching area makes symptoms worse. Nothing makes symptoms better. - History of Current Complaint Chief Complaint: EDLacSutureRecheck Stated Complaint: FINGER LAC PER PT Time Seen by Provider: 04/28/19 15:58 Hx Obtained From: Patient - Allergies/Home Medications Allergies/Adverse Reactions: Allergies Allergy/AdvReac Type Severity Reaction Status Date / Time naproxen [From Aleve] Allergy Hives Verified 04/28/19 15:37 Home Medications: Home Medications Albuterol HFA INHALER* [Ventolin HFA Inhaler*] 2 puff INH Q4HR PRN 04/28/19 [ History Confirmed 04/28/19] Atorvastatin* [Lipitor 20 MG*] 20 mg PO DAILY 04/28/19 [History Confirmed ] Cephalexin CAP* [Keflex CAP*] 500 mg PO BID #20 cap 04/28/19 [Rx] Hydrocodone/Acetaminophen [Hydrocodone-Acetamin 5-325 mg] 1 each PO Q6H #12 tablet MDD 4 04/28/19 [Rx] Montelukast Sodium TAB* [Singulair 10 MG TAB*] 10 mg PO DAILY 04/28/19 [History Confirmed 04/28/19] Ramipril CAP* [Altace CAP*] 1 tab PO DAILY 04/28/19 [History Confirmed 04/28/19] Venlafaxine ER (NF) [Effexor ER (NF)] 1 cap PO DAILY 04/28/19 [History Confirmed 04/28/19] hydroCHLOROthiazide [Hydrochlorothiazide] 1 tab PO DAILY 04/28/19 [History Confirmed 04/28/19] PMH/Surg Hx/FS Hx/Imm Hx Previously Healthy: Yes Infectious Disease History: No Infectious Disease History: Denies: Traveled Outside the [place] in Last 30 Days - Family History Known Family History: Positive: Non-Contributory - Social History Occupation: Employed Full-time Lives: With Family Alcohol Use: None Hx Substance Use: No Substance Use Type: Reports: None Smoking Status (MU): Never Smoked Tobacco Review of Systems - ROS Summary Review of Systems Summary: Albuterol HFA INHALER* [Ventolin HFA Inhaler*] 2 puff INH Q4HR PRN 04/28/19 [ History Confirmed 04/28/19] Atorvastatin* [Lipitor 20 MG*] 20 mg PO DAILY 04/28/19 [History Confirmed ] Cephalexin CAP* [Keflex CAP*] 500 mg PO BID #20 cap 04/28/19 [Rx] Hydrocodone/Acetaminophen [Hydrocodone-Acetamin 5-325 mg] 1 each PO Q6H #12 tablet MDD 4 04/28/19 [Rx] Montelukast Sodium TAB* [Singulair 10 MG TAB*] 10 mg PO DAILY 04/28/19 [History Confirmed 04/28/19] Ramipril CAP* [Altace CAP*] 1 tab PO DAILY 04/28/19 [History Confirmed 04/28/19] Venlafaxine ER (NF) [Effexor ER (NF)] 1 cap PO DAILY 04/28/19 [History Confirmed 04/28/19] hydroCHLOROthiazide [Hydrochlorothiazide] 1 tab PO DAILY 04/28/19 [History Confirmed 04/28/19] Positive: Other - laceration to distal third and fourth digits of left hand Neurological/Mental Status: Negative All Other Systems Reviewed And Are Negative: Yes Physical Exam Triage Information Reviewed: Yes Vital Signs On Initial Exam: Initial Vitals Temp Pulse Resp BP Pulse Ox 97.8 F 72 20 118/67 95 04/28/19 15:33 04/28/19 15:33 04/28/19 15:33 04/28/19 15:33 04/28/19 15:33 Vital Signs Reviewed: Yes Appearance: Positive: Well-Appearing - Patient sitting on bed in no acute distress. present. Skin: Positive: Warm, Dry Head/Face: Positive: Normal Head/Face Inspection Eyes: Positive: Normal, EOMI Neck: Positive: Supple Musculoskeletal: Positive: Other - Distal 3rd digit there is a large avulsion of distal pad of finger and proximal nail and nail bed. Small avulsion to distal 4th digit. Full ROM of digits. Neurological: Positive: Normal, CN Intact II-III Procedures - Procedure Summary Procedure Summary: Digit block to third and fourth digits of left hand: Base of the fourth digits were cleansed with alcohol swabs. 8 cc of 1% lidocaine was placed at face of digits. Patient had good anesthesia digits. Patient tolerated well. Wound care: Wounds to third and fourth digits were irrigated with normal saline and cleansed with Betadine. 2 4-0 nylon sutures were placed to better approximate avulsion of the third digit. Nail and skin fragments were trimmed off. A sterile dressing placed. - Sedation Patient Received Moderate/Deep Sedation with Procedure: No - Splinting Left Upper Extremity Hand-Made Type: orthoglass Splint: volar Pre-Proc Neuro Vasc Exam: normal Post-Proc Neuro Vasc Exam: normal Diagnostics - Vital Signs Vital Signs Temp Pulse Resp BP Pulse Ox 04/28/19 15:33 97.8 F 72 20 118/67 95 - Laboratory Lab Statement: Any lab studies that have been ordered have been reviewed, and results considered in the medical decision making process. Course/Dx - Course Course Of Treatment: X-ray showing avulsion to third and fourth distal digits. Tetanus is updated. Digital block performed for pain control with good results. Wounds were treated as noted above. Will place patient on Keflex. To call orthopedics tomorrow for close follow up appointment. Return to the ER for signs of infection. Hydrocodone prescribed for pain. Patient understands and agrees with plan. - Diagnoses Differential Diagnosis/HQI/PQRI: Positive: Fracture (Open) Provider Diagnoses: Open finger fracture Discharge ED - Sign-Out/Discharge Documenting (check all that apply): Patient Departure - Discharge Plan Condition: Improved Disposition: HOME Prescriptions: Cephalexin CAP* [Keflex CAP*] 500 mg PO BID #20 cap Hydrocodone/Acetaminophen [Hydrocodone-Acetamin 5-325 mg] 1 each PO Q6H #12 tablet MDD 4 Patient Education Materials: Finger Fracture (ED), Skin Avulsion (ED), Nail Avulsion (ED) Referrals: Matty León PA [Primary Care Provider] - Neelima Vega MD [Medical Doctor] - Additional Instructions: Schedule a follow up appointment with orthopedics within one week for recheck Antibiotic as directed Pain medication as directed Return to ER for redness, swelling, drainage from wounds - Billing Disposition and Condition Condition: IMPROVED Disposition: Home - Attestation Statements Provider Attestation: I was available for consultation for this patient. I did not evaluate the patient or participate in any medical decision making or disposition decisions unless I am specifically named in the chart as having consulted on the patient. If I have consulted on the patient, please see my own ED note on the patient encounter. Belen Mota MD
[2019-04-28] MEDS ORDERED: Cephalexin CAP* 500 MG PO ONE (16:24)
[2019-04-28 17:46] VITALS: BP 123/74
== END 2019-04-28 17:45 | disposition home or self-care (01) ==
LOC: ED 15:29
DX: S62.633B Displaced fracture of distal phalanx of left middle finger, initial encounter for open fracture (principal); S62.635B Displaced fracture of distal phalanx of left ring finger, initial encounter for open fracture; Z23 Encounter for immunization; W31.2XXA Contact with powered woodworking and forming machines, initial encounter; Y92.9 Unspecified place or not applicable; Z79.899 Other long term (current) drug therapy; Z88.8 Allergy status to other drugs, medicaments and biological substances
CPT/HCPCS: 12001; 90471; 90715; 99282; A9270-GY